=== PATIENT | female | born 1960 | race Caucasian/White ===

== ENCOUNTER → 2018-03-27 14:12 | Outpatient (CLI) | payer OTHER, SELFPAY ==
[2018-03-27 16:00] LABS: Cancer Antigen 125 < 6 U/mL (0-35)
== END ==
PROVIDERS: Family Provider Internal Medicine Hematology & Oncology; PCP Internal Medicine
DX: C56.9 Malignant neoplasm of unspecified ovary (principal)
CPT/HCPCS: 36415; 86304

== ENCOUNTER → 2018-06-26 09:24 | Outpatient (CLI) | payer OTHER, SELFPAY ==
[2018-06-26 11:49] LABS: Cancer Antigen 125 < 6 U/mL (0-35)
== END ==
PROVIDERS: Family Provider Internal Medicine Hematology & Oncology; PCP Internal Medicine; Visit Provider Internal Medicine Hematology & Oncology
DX: Z85.43 Personal history of malignant neoplasm of ovary (principal)
CPT/HCPCS: 36415; 86304

== ENCOUNTER → 2018-09-27 14:32 | Outpatient (CLI) | payer OTHER, SELFPAY ==
[2018-09-27 15:54] LABS: Alanine Aminotransferase 30 IU/L (9-52); Albumin 4.5 g/dL (3.5-5.0); Albumin Globulin Ratio 1.7 (1.0-2.8); Alkaline Phosphatase 54 U/L (38-126); Aspartate Aminotransferase 28 IU/L (14-36); BUN Creatinine Ratio 22.5 (6-22); Bilirubin Total 0.5 mg/dL (0.2-1.3); Blood Urea Nitrogen 18 mg/dL (7-17); Calcium 9.4 mg/dL (8.4-10.2); Carbon Dioxide 28 mmol/L (22-32); Chloride 103 mmol/L (98-107); Estimated Glomerular Filt Rate > 60.0 mL/min (>60); Globulin 2.7 g/dL (1.7-4.1); Glucose 86 mg/dL (70-100); HEMOLYSIS < 15 (0-50); Potassium 4.2 mmol/L (3.4-5.1); Sodium 141 mmol/L (137-145); Total Protein 7.2 g/dL (6.3-8.2)
[2018-09-27 16:21] LABS: Cancer Antigen 125 < 6 U/mL (0-35); Thyroid Stimulating Hormone 2.21 uIU/mL (0.47-4.68)
== END ==
PROVIDERS: Family Provider Internal Medicine Hematology & Oncology
DX: Z85.43 Personal history of malignant neoplasm of ovary (principal); Z13.228 Encounter for screening for other metabolic disorders; E03.9 Hypothyroidism, unspecified
CPT/HCPCS: 36415; 80053; 84443; 86304

== ENCOUNTER → 2019-01-30 18:17 | Outpatient (ROUT) | payer OTHER, SELFPAY ==
[2019-01-30 18:34] LABS: Cholesterol 179 mg/dL (140-199); HDL Cholesterol 53 mg/dL (40-60); LDL Cholesterol Calculated 101 mg/dL (<100); Triglycerides 125 mg/dL (35-150)
== END ==
PROVIDERS: Family Provider Internal Medicine Hematology & Oncology; Visit Provider Physician Assistant
DX: E78.2 Mixed hyperlipidemia (principal)
CPT/HCPCS: 80061

== ENCOUNTER → 2019-09-18 16:10 | Outpatient (CLI) | payer OTHER, SELFPAY ==
[2019-09-18 18:25] LABS: Cancer Antigen 125 < 5.5 U/mL (0-35)
== END ==
PROVIDERS: Family Provider Internal Medicine Hematology & Oncology; PCP Physician Assistant; Referring Provider Internal Medicine Hematology & Oncology; Visit Provider Internal Medicine Hematology & Oncology
DX: Z85.43 Personal history of malignant neoplasm of ovary (principal)
CPT/HCPCS: 36415; 86304

== ENCOUNTER → 2019-09-30 14:46 | Outpatient (CLI) | payer OTHER, SELFPAY ==
--- NOTE | 2019-09-30 | DI.RAD.S_ITS ---
This blank DEXA report has been sent in error by the PACS system. The correct and complete report will be forthcoming in 1-2 days. Thank you for your patience and understanding. Dictated by: Ana Rodriguez MD, PhD on 09/30/2019 at 17:38 Approved by: Ana Rodriguez MD, PhD on 09/30/2019 at 17:38
== END ==
PROVIDERS: Family Provider Internal Medicine Hematology & Oncology; PCP Physician Assistant; Referring Provider Internal Medicine Hematology & Oncology; Visit Provider Internal Medicine Hematology & Oncology
DX: Z13.820 Encounter for screening for osteoporosis (principal); M85.88 Other specified disorders of bone density and structure, other site; Z78.0 Asymptomatic menopausal state; E07.9 Disorder of thyroid, unspecified; Z85.43 Personal history of malignant neoplasm of ovary; Z90.722 Acquired absence of ovaries, bilateral
CPT/HCPCS: 77080

== ENCOUNTER → 2019-10-07 13:39 | Outpatient (CLI) | payer OTHER, SELFPAY ==
[2019-10-09 00:38] LABS: COVID19 Sendout Not Detected (Not Detect)
== END ==
PROVIDERS: Family Provider Internal Medicine Hematology & Oncology; PCP Physician Assistant; Visit Provider Physician Assistant
DX: Z01.812 Encounter for preprocedural laboratory examination (principal)
CPT/HCPCS: 87635

== ENCOUNTER 2020-05-12 11:15 | Outpatient (RCR) | payer OTHER, SELFPAY ==
--- NOTE | 2020-03-08 14:18 | PT.OIE ---
Current Diagnoses Urge incontinence (03/08/20) Rectocele (03/08/20) Past Medical History (Last Updated 02/17/20 @ 17:02 by Shantel Gomez MD) Ovarian cancer Past Surgical History (Last Updated 02/17/20 @ 17:02 by Shantel Gomez MD) History of hysterectomy for cancer Hx of breast implants, bilateral Visit Care Team Role Provider Type Ramona Jurado PA-C Primary Care Provider Advanced Brim Stitcher Specialty: Internal Medicine Address: [address] [place] [address], [id number] Email: [email or web address] Shantel Gomez MD Attending Provider Physician Referring Provider Specialty: HOLLOW WARE MAKER Address: [address] [place] [address], [id number] Email: Physical Therapy Initial Evaluation PT-OP-A Visit Information Start: 03/06/20 09:21 Freq: Status: Active Protocol: Document 03/08/20 11:00 AMB (Rec: 03/08/20 14:18 AMB [id number]) Out-Patient Physical Therapy Visit Information Visit Information Visit Type Initial Evaluation Visit Start Time 11:00 Visit Stop Time 11:55 Total Visit Minutes 55 Visit Number 1 PT-OP-B Current Condition Start: 03/06/20 09:21 Freq: Status: Active Protocol: Document 03/08/20 11:00 AMB (Rec: 03/08/20 11:27 AMB [id number]) Current Condition History of Current Condition Onset Date 2015 Current Complaints prolapse History of Current Condition Pt is here for prolapse, but also has a history of urgency and urge incontinence. Pt had to change pants 3x last week due to large leaks, despite wearing pads. Walking increases feeling of pressure. Then getting close to the toilet triggers a leak. Chronic constipation, 2 vaginal births with tearing. Urinary leakage after childbirth- got help and it went away. Mild fecal incontinence- pt notes it is very uncommon but has happened . Ovarian CA with oophorectomy complete hysterectomy in 2013, think sx started sometime after that. Treatment Goals Patient/Caregiver Goals Reduce prolapse Prior Functional Status Baseline Function- ADL's Modified Independent Baseline Function- Mobility Modified Independent Current Functional Impairments (Reported) Functional Limitations- ADL's leaking with urge, some stress incontinence sx Personal Factors Other Personal Factors That May Effect Osteoporosis, low back pain Therapy/Recovery PT-OP-C Subjective Start: 03/06/20 09:21 Freq: Status: Active Protocol: Document 03/08/20 11:00 AMB (Rec: 03/08/20 14:18 AMB [id number]) Patient Questionnaires Pelvic Pain and Urgency/Frequency Patient Symptom Scale Pelvic Pain Score 14 PT-OP-I Pelvic Floor Start: 03/06/20 09:21 Freq: Status: Active Protocol: Document 03/08/20 11:00 AMB (Rec: 03/08/20 14:18 AMB [id number]) Pelvic Floor Assessment Urine Pelvic Floor Surgery Yes: hysterectomy, oophorectomy 2013 for ovarian cancer Urinary Symptoms Urge Sensation,Prolapse, Falling Out Feeling/Heavy Leakage Size Large Leakage Cause Cough,Sneeze,Urge Leaks Per Day 3x/week Voiding Frequency every 2 hours Nocturia 1 Urine Pad Type Maxi Pad Bowel Bowel Surgery No Bowel Symptoms Constipation Other Bowel Symptoms constipation was worse before but now has made diet changes that help Pelvic Clock Pelvic Clock 12-3 Atrophy Pelvic Clock 3-6 Atrophy Pelvic Clock 6-9 Atrophy Pelvic Clock 9-12 Atrophy Prolapse Cystocele Grade 2 Rectocele Grade 3 Perineal Descent Resting Present Bearing Present Contraction Ability Voluntary Relaxation Moderate Muscle Endurance (Seconds) 1 Number of Quick Contractions In 10 4 Seconds Comments Pelvic Floor Comments Pt able to contract but not hold that contraction for any length of time PT-OP-Q Treatments Start: 03/06/20 09:21 Freq: Status: Active Protocol: Document 03/08/20 11:00 AMB (Rec: 03/08/20 14:18 AMB [id number]) Therapeutic Exercises Other Exercises 1 Comments began instruction in long holds, quick flicks and urge supression PT-OP-T Assessment and Plan Start: 03/06/20 09:21 Freq: Status: Active Protocol: Document 03/08/20 11:00 AMB (Rec: 03/08/20 14:18 AMB [id number]) Physical Therapy Assessment Rehab Potential Rehabilitation Potential Good Evaluation Complexity Number of Personal Factors/Comorbidities 1-2 Number of Body Systems Impaired 1-2 Clinical Presentation at Evaluation Stable Impairments Impairments Functional Activities,Strength Goals Two Impairment prolapse Short Term Goal (STG) Shantel will be independent with a HEP to improve her pelvic floor strength. STG Duration 4 weeks One Impairment continence Short Term Goal (STG) Shantel will report that she can avoid large leaks of urine. STG Duration 4 weeks Keg Varnisher Goal (LTG) Shantel will be able to go for a walk and then come home and look at a toilet without urgency. LTG Duration 8 weeks Assessment Summary Assessment Shantel attends physical therapy with significant rectocele. She also reports urge urinary incontinence and less commonly fecal incontinence and chronic constipation. She was able to engage her pelvic floor, but her endurance was quite poor and she has a tendency to hold her breath. She will benefit from PT to improve her pelvic floor strength and teach her urge suppression to improve her continence as well. Physical Therapy Plan Frequency and Duration Frequency of Treatment 1x/Week Duration of Treatment 8 weeks Plan of Care Start Date 03/08/20 Plan of Care End Date 05/03/20 Therapeutic Interventions Therapeutic Interventions Home Exercise Program,Manual Therapy,Neuromuscular Re- education,Self-Care/Home Management,Therapeutic Activities,Therapeutic Exercises Modalities Biofeedback,Electric Stimulation Next Visit Focus/Plan Next Note Type Treatment Note Next Visit Plan review urge suppression and quick flicks and long holds, can start sEMG
--- NOTE | 2020-03-08 14:19 | PT.OPPOC ---
Physical, Occupational & Speech Therapy At [facility] Current Diagnoses Urge incontinence (03/08/20) Rectocele (03/08/20) Visit Care Team Role Provider Type Ramona Jurado PA-C Primary Care Provider Advanced Experimental Preflight Mechanic Specialty: Internal Medicine Address: [address] [place] [address], [id number] Email: [email or web address] Shantel Gomez MD Attending Provider Physician Referring Provider Specialty: METAL SHAPING MACHINE OPERATOR Address: [address] [place] [address], [id number] Email: Plan Of Care PT-OP-T Assessment and Plan Start: 03/06/20 09:21 Freq: Status: Active Protocol: Document 03/08/20 11:00 AMB (Rec: 03/08/20 14:18 AMB [id number]) Physical Therapy Assessment Rehab Potential Rehabilitation Potential Good Evaluation Complexity Number of Personal Factors/Comorbidities 1-2 Number of Body Systems Impaired 1-2 Clinical Presentation at Evaluation Stable Impairments Impairments Functional Activities,Strength Goals Two Impairment prolapse Short Term Goal (STG) Shantel will be independent with a HEP to improve her pelvic floor strength. STG Duration 4 weeks One Impairment continence Short Term Goal (STG) Shantel will report that she can avoid large leaks of urine. STG Duration 4 weeks Prison Goal (LTG) Shantel will be able to go for a walk and then come home and look at a toilet without urgency. LTG Duration 8 weeks Assessment Summary Assessment Shantel attends physical therapy with significant rectocele. She also reports urge urinary incontinence and less commonly fecal incontinence and chronic constipation. She was able to engage her pelvic floor, but her endurance was quite poor and she has a tendency to hold her breath. She will benefit from PT to improve her pelvic floor strength and teach her urge suppression to improve her continence as well. Physical Therapy Plan Frequency and Duration Frequency of Treatment 1x/Week Duration of Treatment 8 weeks Plan of Care Start Date 03/08/20 Plan of Care End Date 05/03/20 Therapeutic Interventions Therapeutic Interventions Home Exercise Program,Manual Therapy,Neuromuscular Re- education,Self-Care/Home Management,Therapeutic Activities,Therapeutic Exercises Modalities Biofeedback,Electric Stimulation Next Visit Focus/Plan Next Note Type Treatment Note Next Visit Plan review urge suppression and quick flicks and long holds, can start sEMG Plan of Care Dates Plan of Care Start Date 03/08/20 Plan of Care End Date 05/03/20 Electronically Signed by: Jolly Mike, PT 03/08/20 [id number] Please Sign and Return: I have reviewed this Plan of Care and certify that the skilled therapy services above are required to meet the patient?s needs. Physician Signature Date Printed Name and Credentials Clinical Instructor Signature Printed Name and Credentials
--- NOTE | 2020-03-31 14:43 | PT.OTN ---
Current Diagnoses Urge incontinence (03/31/20) Rectocele (03/31/20) Physical Therapy Treatment Note PT-OP-A Visit Information Start: 03/06/20 09:21 Freq: Status: Active Protocol: Document 03/31/20 13:34 AMB (Rec: 03/31/20 14:41 AMB [id number]) Out-Patient Physical Therapy Visit Information Visit Information Visit Type Treatment Note Visit Start Time 13:30 Visit Stop Time 14:15 Total Visit Minutes 45 Visit Number 2 PT-OP-B Current Condition Start: 03/06/20 09:21 Freq: Status: Active Protocol: Document 03/08/20 11:00 AMB (Rec: 03/08/20 11:27 AMB [id number]) Current Condition History of Current Condition Onset Date 2015 Current Complaints prolapse History of Current Condition Pt is here for prolapse, but also has a history of urgency and urge incontinence. Pt had to change pants 3x last week due to large leaks, despite wearing pads. Walking increases feeling of pressure. Then getting close to the toilet triggers a leak. Chronic constipation, 2 vaginal births with tearing. Urinary leakage after childbirth- got help and it went away. Mild fecal incontinence- pt notes it is very uncommon but has happened . Ovarian CA with oophorectomy complete hysterectomy in 2013, think sx started sometime after that. Treatment Goals Patient/Caregiver Goals Reduce prolapse Prior Functional Status Baseline Function- ADL's Modified Independent Baseline Function- Mobility Modified Independent Current Functional Impairments (Reported) Functional Limitations- ADL's leaking with urge, some stress incontinence sx Personal Factors Other Personal Factors That May Effect Osteoporosis, low back pain Therapy/Recovery PT-OP-C Subjective Start: 03/06/20 09:21 Freq: Status: Active Protocol: Document 03/31/20 13:34 AMB (Rec: 03/31/20 14:41 AMB [id number]) OP-PT Subjective Patient Comments Patient Comments There have been 3 leaks since the last time she was seen in PT, but not large ones, so that is a significant improvement. PT-OP-I Pelvic Floor Start: 03/06/20 09:21 Freq: Status: Active Protocol: Document 03/08/20 11:00 AMB (Rec: 03/08/20 14:18 AMB [id number]) Pelvic Floor Assessment Urine Pelvic Floor Surgery Yes: hysterectomy, oophorectomy 2013 for ovarian cancer Urinary Symptoms Urge Sensation,Prolapse, Falling Out Feeling/Heavy Leakage Size Large Leakage Cause Cough,Sneeze,Urge Leaks Per Day 3x/week Voiding Frequency every 2 hours Nocturia 1 Urine Pad Type Maxi Pad Bowel Bowel Surgery No Bowel Symptoms Constipation Other Bowel Symptoms constipation was worse before but now has made diet changes that help Pelvic Clock Pelvic Clock 12-3 Atrophy Pelvic Clock 3-6 Atrophy Pelvic Clock 6-9 Atrophy Pelvic Clock 9-12 Atrophy Prolapse Cystocele Grade 2 Rectocele Grade 3 Perineal Descent Resting Present Bearing Present Contraction Ability Voluntary Relaxation Moderate Muscle Endurance (Seconds) 1 Number of Quick Contractions In 10 4 Seconds Comments Pelvic Floor Comments Pt able to contract but not hold that contraction for any length of time PT-OP-Q Treatments Start: 03/06/20 09:21 Freq: Status: Active Protocol: Document 03/31/20 13:34 AMB (Rec: 03/31/20 14:41 AMB [id number]) Therapeutic Exercises Supine Exercises 3 Supine Exercise Name long holds with sEMG 2 Supine Exercise Name long holds Comments with breath, on bolster, gentle contract and relax 1 Supine Exercise Name quick flicks Comments legs up on bolster PT-OP-T Assessment and Plan Start: 03/06/20 09:21 Freq: Status: Active Protocol: Document 03/31/20 13:34 AMB (Rec: 03/31/20 14:41 AMB [id number]) Physical Therapy Assessment Assessment Summary Assessment Shantel is showing improvement in her urgency but is still challenged by long holds. sEMG did seem to help her hold the contraction, but still struggles with breath. Physical Therapy Plan Next Visit Focus/Plan Next Note Type Treatment Note Next Visit Plan sEMG and biofeedback
--- NOTE | 2020-04-05 15:12 | PT.OTN ---
Current Diagnoses Urge incontinence (04/05/20) Rectocele (04/05/20) Physical Therapy Treatment Note PT-OP-A Visit Information Start: 03/06/20 09:21 Freq: Status: Active Protocol: Document 04/05/20 12:45 AMB (Rec: 04/05/20 13:32 AMB [id number]) Out-Patient Physical Therapy Visit Information Visit Information Visit Type Treatment Note Visit Start Time 12:45 Visit Stop Time 13:30 Total Visit Minutes 45 Visit Number 3 PT-OP-B Current Condition Start: 03/06/20 09:21 Freq: Status: Active Protocol: Document 03/08/20 11:00 AMB (Rec: 03/08/20 11:27 AMB [id number]) Current Condition History of Current Condition Onset Date 2015 Current Complaints prolapse History of Current Condition Pt is here for prolapse, but also has a history of urgency and urge incontinence. Pt had to change pants 3x last week due to large leaks, despite wearing pads. Walking increases feeling of pressure. Then getting close to the toilet triggers a leak. Chronic constipation, 2 vaginal births with tearing. Urinary leakage after childbirth- got help and it went away. Mild fecal incontinence- pt notes it is very uncommon but has happened . Ovarian CA with oophorectomy complete hysterectomy in 2013, think sx started sometime after that. Treatment Goals Patient/Caregiver Goals Reduce prolapse Prior Functional Status Baseline Function- ADL's Modified Independent Baseline Function- Mobility Modified Independent Current Functional Impairments (Reported) Functional Limitations- ADL's leaking with urge, some stress incontinence sx Personal Factors Other Personal Factors That May Effect Osteoporosis, low back pain Therapy/Recovery PT-OP-C Subjective Start: 03/06/20 09:21 Freq: Status: Active Protocol: Document 03/31/20 13:34 AMB (Rec: 03/31/20 14:41 AMB [id number]) OP-PT Subjective Patient Comments Patient Comments There have been 3 leaks since the last time she was seen in PT, but not large ones, so that is a significant improvement. PT-OP-I Pelvic Floor Start: 03/06/20 09:21 Freq: Status: Active Protocol: Document 03/08/20 11:00 AMB (Rec: 03/08/20 14:18 AMB [id number]) Pelvic Floor Assessment Urine Pelvic Floor Surgery Yes: hysterectomy, oophorectomy 2013 for ovarian cancer Urinary Symptoms Urge Sensation,Prolapse, Falling Out Feeling/Heavy Leakage Size Large Leakage Cause Cough,Sneeze,Urge Leaks Per Day 3x/week Voiding Frequency every 2 hours Nocturia 1 Urine Pad Type Maxi Pad Bowel Bowel Surgery No Bowel Symptoms Constipation Other Bowel Symptoms constipation was worse before but now has made diet changes that help Pelvic Clock Pelvic Clock 12-3 Atrophy Pelvic Clock 3-6 Atrophy Pelvic Clock 6-9 Atrophy Pelvic Clock 9-12 Atrophy Prolapse Cystocele Grade 2 Rectocele Grade 3 Perineal Descent Resting Present Bearing Present Contraction Ability Voluntary Relaxation Moderate Muscle Endurance (Seconds) 1 Number of Quick Contractions In 10 4 Seconds Comments Pelvic Floor Comments Pt able to contract but not hold that contraction for any length of time PT-OP-Q Treatments Start: 03/06/20 09:21 Freq: Status: Active Protocol: Document 04/05/20 12:45 AMB (Rec: 04/05/20 15:12 AMB [email or web address]) Therapeutic Exercises Supine Exercises 4 Supine Exercise Name roll in roll out Reps/Minutes #3 t band 3 Supine Exercise Name long holds and quick flicks with sEMG 2 Supine Exercise Name long holds Comments with breath, on bolster, gentle contract and relax 1 Supine Exercise Name quick flicks Comments legs up on bolster Sitting Exercises 1 Sitting Exercise Name roll in roll out Reps/Minutes #3 t band PT-OP-T Assessment and Plan Start: 03/06/20 09:21 Freq: Status: Active Protocol: Document 04/05/20 12:45 AMB (Rec: 04/05/20 13:32 AMB [id number]) Physical Therapy Assessment Assessment Summary Assessment Quick flicks highest was 20, avg 7.6, baseline 2. Avg 6.8 over long hold with max 20, but unable to maintain that. Physical Therapy Plan Next Visit Focus/Plan Next Note Type Treatment Note Next Visit Plan sEMG and biofeedback
--- NOTE | 2020-04-20 15:53 | PT.OTN ---
Current Diagnoses Urge incontinence (04/20/20) Rectocele (04/20/20) Physical Therapy Treatment Note PT-OP-A Visit Information Start: 03/06/20 09:21 Freq: Status: Active Protocol: Document 04/20/20 10:30 AMB (Rec: 04/20/20 15:52 AMB [id number]) Out-Patient Physical Therapy Visit Information Visit Information Visit Type Treatment Note Visit Start Time 10:30 Visit Stop Time 11:15 Total Visit Minutes 45 Visit Number 4 PT-OP-B Current Condition Start: 03/06/20 09:21 Freq: Status: Active Protocol: Document 03/08/20 11:00 AMB (Rec: 03/08/20 11:27 AMB [id number]) Current Condition History of Current Condition Onset Date 2015 Current Complaints prolapse History of Current Condition Pt is here for prolapse, but also has a history of urgency and urge incontinence. Pt had to change pants 3x last week due to large leaks, despite wearing pads. Walking increases feeling of pressure. Then getting close to the toilet triggers a leak. Chronic constipation, 2 vaginal births with tearing. Urinary leakage after childbirth- got help and it went away. Mild fecal incontinence- pt notes it is very uncommon but has happened . Ovarian CA with oophorectomy complete hysterectomy in 2013, think sx started sometime after that. Treatment Goals Patient/Caregiver Goals Reduce prolapse Prior Functional Status Baseline Function- ADL's Modified Independent Baseline Function- Mobility Modified Independent Current Functional Impairments (Reported) Functional Limitations- ADL's leaking with urge, some stress incontinence sx Personal Factors Other Personal Factors That May Effect Osteoporosis, low back pain Therapy/Recovery PT-OP-C Subjective Start: 03/06/20 09:21 Freq: Status: Active Protocol: Document 04/20/20 10:30 AMB (Rec: 04/20/20 15:52 AMB [id number]) OP-PT Subjective Patient Comments Patient Comments Pt states she has had a hard time motivating herself to do her exercises over the past few weeks. PT-OP-I Pelvic Floor Start: 03/06/20 09:21 Freq: Status: Active Protocol: Document 03/08/20 11:00 AMB (Rec: 03/08/20 14:18 AMB [id number]) Pelvic Floor Assessment Urine Pelvic Floor Surgery Yes: hysterectomy, oophorectomy 2013 for ovarian cancer Urinary Symptoms Urge Sensation,Prolapse, Falling Out Feeling/Heavy Leakage Size Large Leakage Cause Cough,Sneeze,Urge Leaks Per Day 3x/week Voiding Frequency every 2 hours Nocturia 1 Urine Pad Type Maxi Pad Bowel Bowel Surgery No Bowel Symptoms Constipation Other Bowel Symptoms constipation was worse before but now has made diet changes that help Pelvic Clock Pelvic Clock 12-3 Atrophy Pelvic Clock 3-6 Atrophy Pelvic Clock 6-9 Atrophy Pelvic Clock 9-12 Atrophy Prolapse Cystocele Grade 2 Rectocele Grade 3 Perineal Descent Resting Present Bearing Present Contraction Ability Voluntary Relaxation Moderate Muscle Endurance (Seconds) 1 Number of Quick Contractions In 10 4 Seconds Comments Pelvic Floor Comments Pt able to contract but not hold that contraction for any length of time PT-OP-Q Treatments Start: 03/06/20 09:21 Freq: Status: Active Protocol: Document 04/20/20 10:35 AMB (Rec: 04/20/20 11:14 AMB [id number]) Therapeutic Exercises Supine Exercises 4 Supine Exercise Name roll in roll out Reps/Minutes #3 t band 3 Supine Exercise Name long holds and quick flicks with sEMG Comments with NMES 2 Supine Exercise Name long holds Comments with breath, on bolster, gentle contract and relax 1 Supine Exercise Name quick flicks Comments legs up on bolster PT-OP-T Assessment and Plan Start: 03/06/20 09:21 Freq: Status: Active Protocol: Document 04/20/20 10:30 AMB (Rec: 04/20/20 15:52 AMB [email or web address]) Physical Therapy Assessment Assessment Summary Assessment Tried to encourage pt with NMES today, that she has the confidence to know what muscles she should be using. Education also provided on pessary, surgery, PT. Physical Therapy Plan Next Visit Focus/Plan Next Note Type Treatment Note Next Visit Plan sEMG and biofeedback
--- NOTE | 2020-05-12 12:00 | PT.OTN ---
Current Diagnoses Urge incontinence (05/12/20) Rectocele (05/12/20) Physical Therapy Treatment Note PT-OP-A Visit Information Start: 03/06/20 09:21 Freq: Status: Active Protocol: Document 05/12/20 11:15 AMB (Rec: 05/12/20 16:19 AMB [id number]) Out-Patient Physical Therapy Visit Information Visit Information Visit Type Treatment Note Visit Start Time 11:15 Visit Stop Time 12:00 Total Visit Minutes 45 Visit Number 5 PT-OP-B Current Condition Start: 03/06/20 09:21 Freq: Status: Active Protocol: Document 03/08/20 11:00 AMB (Rec: 03/08/20 11:27 AMB [id number]) Current Condition History of Current Condition Onset Date 2015 Current Complaints prolapse History of Current Condition Pt is here for prolapse, but also has a history of urgency and urge incontinence. Pt had to change pants 3x last week due to large leaks, despite wearing pads. Walking increases feeling of pressure. Then getting close to the toilet triggers a leak. Chronic constipation, 2 vaginal births with tearing. Urinary leakage after childbirth- got help and it went away. Mild fecal incontinence- pt notes it is very uncommon but has happened . Ovarian CA with oophorectomy complete hysterectomy in 2013, think sx started sometime after that. Treatment Goals Patient/Caregiver Goals Reduce prolapse Prior Functional Status Baseline Function- ADL's Modified Independent Baseline Function- Mobility Modified Independent Current Functional Impairments (Reported) Functional Limitations- ADL's leaking with urge, some stress incontinence sx Personal Factors Other Personal Factors That May Effect Osteoporosis, low back pain Therapy/Recovery PT-OP-C Subjective Start: 03/06/20 09:21 Freq: Status: Active Protocol: Document 05/12/20 11:15 AMB (Rec: 05/21/20 07:55 AMB [email or web address]) OP-PT Subjective Patient Comments Patient Comments Pt is feeling continued heaviness, but has been doing exercises PT-OP-I Pelvic Floor Start: 03/06/20 09:21 Freq: Status: Active Protocol: Document 03/08/20 11:00 AMB (Rec: 03/08/20 14:18 AMB [id number]) Pelvic Floor Assessment Urine Pelvic Floor Surgery Yes: hysterectomy, oophorectomy 2013 for ovarian cancer Urinary Symptoms Urge Sensation,Prolapse, Falling Out Feeling/Heavy Leakage Size Large Leakage Cause Cough,Sneeze,Urge Leaks Per Day 3x/week Voiding Frequency every 2 hours Nocturia 1 Urine Pad Type Maxi Pad Bowel Bowel Surgery No Bowel Symptoms Constipation Other Bowel Symptoms constipation was worse before but now has made diet changes that help Pelvic Clock Pelvic Clock 12-3 Atrophy Pelvic Clock 3-6 Atrophy Pelvic Clock 6-9 Atrophy Pelvic Clock 9-12 Atrophy Prolapse Cystocele Grade 2 Rectocele Grade 3 Perineal Descent Resting Present Bearing Present Contraction Ability Voluntary Relaxation Moderate Muscle Endurance (Seconds) 1 Number of Quick Contractions In 10 4 Seconds Comments Pelvic Floor Comments Pt able to contract but not hold that contraction for any length of time PT-OP-Q Treatments Start: 03/06/20 09:21 Freq: Status: Active Protocol: Document 05/12/20 11:15 AMB (Rec: 05/21/20 07:54 AMB [email or web address]) Therapeutic Exercises Supine Exercises 4 Supine Exercise Name roll in roll out Reps/Minutes #3 t band 2 Supine Exercise Name long holds Comments with breath, on bolster, gentle contract and relax 1 Supine Exercise Name quick flicks Comments legs up on bolster Sitting Exercises 1 Sitting Exercise Name roll in roll out Reps/Minutes #3 t band PT-OP-T Assessment and Plan Start: 03/06/20 09:21 Freq: Status: Active Protocol: Document 05/12/20 11:15 AMB (Rec: 05/19/20 08:15 AMB [email or web address]) Physical Therapy Assessment Goals Two Impairment prolapse Short Term Goal (STG) Shantel will be independent with a HEP to improve her pelvic floor strength. STG Duration 4 weeks One Impairment continence Short Term Goal (STG) Shantel will report that she can avoid large leaks of urine. STG Duration MET Group Home Goal (LTG) Shantel will be able to go for a walk and then come home and look at a toilet without urgency. LTG Duration 8 weeks Assessment Summary Assessment Shantel has attended 5 visits of physical therapy. Her urgency has improved. She was surprised to learn that she has rectocele. Significant education provided today on the different types of prolapse, and treatment options. She is wondering if the rectocele is contributing to her uncommon fecal incontinence. She is considering going back to surgeon to discuss this, but is hopeful to continue to improve her pelvic floor strength in the interim. She would continue to benefit from physical therapy to improve her pelvic floor strength. Physical Therapy Plan Frequency and Duration Frequency of Treatment 1x/Week Duration of Treatment 8 weeks Plan of Care Start Date 05/12/20 Plan of Care End Date 06/30/20 Therapeutic Interventions Therapeutic Interventions Home Exercise Program,Manual Therapy,Neuromuscular Re- education,Self-Care/Home Management,Therapeutic Activities,Therapeutic Exercises Modalities Biofeedback,Electric Stimulation
--- NOTE | 2020-05-12 12:00 | PT.OPPOC ---
Physical, Occupational & Speech Therapy At [facility] Current Diagnoses Urge incontinence (05/12/20) Rectocele (05/12/20) Visit Care Team Role Provider Type Ramona Jurado PA-C Primary Care Provider Non-Staff Specialty: Internal Medicine Address: [address] [place] [address], [id number] Email: [email or web address] Shantel Gomez MD Attending Provider Physician Referring Provider Specialty: TERMITE TREATER HELPER Address: [address] [place] [address], [id number] Email: Plan Of Care PT-OP-T Assessment and Plan Start: 03/06/20 09:21 Freq: Status: Active Protocol: Document 05/12/20 11:15 AMB (Rec: 05/19/20 08:15 AMB [email or web address]) Physical Therapy Assessment Goals Two Impairment prolapse Short Term Goal (STG) Shantel will be independent with a HEP to improve her pelvic floor strength. STG Duration 4 weeks One Impairment continence Short Term Goal (STG) Shantel will report that she can avoid large leaks of urine. STG Duration MET Senior Care Goal (LTG) Shantel will be able to go for a walk and then come home and look at a toilet without urgency. LTG Duration 8 weeks Assessment Summary Assessment Shantel has attended 5 visits of physical therapy. Her urgency has improved. She was surprised to learn that she has rectocele. Significant education provided today on the different types of prolapse, and treatment options. She is wondering if the rectocele is contributing to her uncommon fecal incontinence. She is considering going back to surgeon to discuss this, but is hopeful to continue to improve her pelvic floor strength in the interim. She would continue to benefit from physical therapy to improve her pelvic floor strength. Physical Therapy Plan Frequency and Duration Frequency of Treatment 1x/Week Duration of Treatment 8 weeks Plan of Care Start Date 05/12/20 Plan of Care End Date 06/30/20 Therapeutic Interventions Therapeutic Interventions Home Exercise Program,Manual Therapy,Neuromuscular Re- education,Self-Care/Home Management,Therapeutic Activities,Therapeutic Exercises Modalities Biofeedback,Electric Stimulation Plan of Care Dates Plan of Care Start Date 05/12/20 Plan of Care End Date 06/30/20 Electronically Signed by: Jolly Mike, PT 05/21/20 0757 Please Sign and Return: I have reviewed this Plan of Care and certify that the skilled therapy services above are required to meet the patient?s needs. Physician Signature Date Printed Name and Credentials Clinical Instructor Signature Printed Name and Credentials
--- NOTE | 2020-07-11 09:14 | PT.OPDS ---
Current Diagnoses Urge incontinence (05/12/20) Rectocele (05/12/20) Visit Care Team Role Provider Type Ramona Jurado PA-C Primary Care Provider Non-Staff Specialty: Internal Medicine Address: [address] [place] [address], [phone] Email: [email or web address] Shantel Gomez MD Attending Provider Physician Referring Provider Specialty: SERVICENOW ADMINISTRATOR Address: [address] [place] [address], [address] Email: Visit Number Visit Number 5 Discharge Summary PT-OP-B Current Condition Start: 03/06/20 09:21 Freq: Status: Active Protocol: Document 03/08/20 11:00 AMB (Rec: 03/08/20 11:27 AMB [id number]) Current Condition History of Current Condition Onset Date 2015 Current Complaints prolapse History of Current Condition Pt is here for prolapse, but also has a history of urgency and urge incontinence. Pt had to change pants 3x last week due to large leaks, despite wearing pads. Walking increases feeling of pressure. Then getting close to the toilet triggers a leak. Chronic constipation, 2 vaginal births with tearing. Urinary leakage after childbirth- got help and it went away. Mild fecal incontinence- pt notes it is very uncommon but has happened . Ovarian CA with oophorectomy complete hysterectomy in 2013, think sx started sometime after that. Treatment Goals Patient/Caregiver Goals Reduce prolapse Prior Functional Status Baseline Function- ADL's Modified Independent Baseline Function- Mobility Modified Independent Current Functional Impairments (Reported) Functional Limitations- ADL's leaking with urge, some stress incontinence sx Personal Factors Other Personal Factors That May Effect Osteoporosis, low back pain Therapy/Recovery PT-OP-C Subjective Start: 03/06/20 09:21 Freq: Status: Active Protocol: Document 05/12/20 11:15 AMB (Rec: 05/21/20 07:55 AMB [email or web address]) OP-PT Subjective Patient Comments Patient Comments Pt is feeling continued heaviness, but has been doing exercises PT-OP-I Pelvic Floor Start: 03/06/20 09:21 Freq: Status: Active Protocol: Document 12/21/20 11:00 AMB (Rec: 03/08/20 14:18 AMB [id number]) Pelvic Floor Assessment Urine Pelvic Floor Surgery Yes: hysterectomy, oophorectomy 2013 for ovarian cancer Urinary Symptoms Urge Sensation,Prolapse, Falling Out Feeling/Heavy Leakage Size Large Leakage Cause Cough,Sneeze,Urge Leaks Per Day 3x/week Voiding Frequency every 2 hours Nocturia 1 Urine Pad Type Maxi Pad Bowel Bowel Surgery No Bowel Symptoms Constipation Other Bowel Symptoms constipation was worse before but now has made diet changes that help Pelvic Clock Pelvic Clock 12-3 Atrophy Pelvic Clock 3-6 Atrophy Pelvic Clock 6-9 Atrophy Pelvic Clock 9-12 Atrophy Prolapse Cystocele Grade 2 Rectocele Grade 3 Perineal Descent Resting Present Bearing Present Contraction Ability Voluntary Relaxation Moderate Muscle Endurance (Seconds) 1 Number of Quick Contractions In 10 4 Seconds Comments Pelvic Floor Comments Pt able to contract but not hold that contraction for any length of time PT-OP-T Assessment and Plan Start: 03/06/20 09:21 Freq: Status: Active Protocol: Document 07/11/20 09:11 AMB (Rec: 07/11/20 09:13 [facility] [email or web address]) Physical Therapy Assessment Assessment Summary Assessment Shantel was seen for 5 visits of physical therapy and did have good improvement with her urgency, but would need to continue with her exercises for her prolapse. She canceled her last remaining appointments and has not been seen since April, therefore she is discharged at this time. Physical Therapy Plan Discharge Physical Therapy Discharge Reasons No Longer Attending PT
== END 2020-07-13 14:46 | disposition home or self-care (01) ==
LOC: PHYS 11:15
PROVIDERS: PCP Physician Assistant; Referring Provider Obstetrics & Gynecology; Visit Provider Obstetrics & Gynecology
DX: N81.6 Rectocele (principal); N39.41 Urge incontinence
CPT/HCPCS: 97110; 97161

== ENCOUNTER → 2020-08-11 17:52 | Outpatient (CLI) | payer OTHER, SELFPAY ==
[2020-08-11 20:34] LABS: TSH w/ Reflex to FT4 1.92 uIU/mL (0.47-4.68)
[2020-08-11 20:49] LABS: Cholesterol 233 mg/dL (140-199); HDL Cholesterol 80 mg/dL (40-60); LDL Cholesterol Calculated 141 mg/dL (<100); Triglycerides 59 mg/dL (35-150)
[2020-08-11 21:20] LABS: Cancer Antigen 125 < 5.5 U/mL (0-35)
== END ==
PROVIDERS: PCP Family Medicine; Referring Provider Internal Medicine Hematology & Oncology; Visit Provider Internal Medicine Hematology & Oncology
DX: Z85.43 Personal history of malignant neoplasm of ovary (principal); E03.9 Hypothyroidism, unspecified; L90.0 Lichen sclerosus et atrophicus; G47.30 Sleep apnea, unspecified
CPT/HCPCS: 36415; 80061; 84443; 86304

== ENCOUNTER → 2021-01-20 15:02 | Outpatient (CLI) | payer OTHER, SELFPAY ==
[2021-01-20 16:34] LABS: Add Manual Diff / Slide Review NO; Basophils Absolute Auto 0 /uL (0-100); Basophils Percent Auto 0.5 % (0-2); Eosinophils Absolute Auto 100 /uL (0-450); Eosinophils Percent Auto 1.9 % (2-4); Hematocrit 36.5 % (36-46); Hemoglobin 12.3 g/dL (12.0-16.0); Lymphocytes Absolute Auto 1700 /uL (1100-4500); Lymphocytes Percent Auto 27.6 % (25-40); Mean Corpuscular HGB Conc 33.8 % (30-36); Mean Corpuscular Hemoglobin 30.3 PG (26-34); Mean Corpuscular Volume 89.8 fL (80-100); Monocytes Absolute Auto 600 /uL (0-900); Monocytes Percent Auto 10.1 % (3-14); Neutrophils Absolute Auto 3600 /uL (1500-7000); Neutrophils Percent Auto 59.9 % (50-75); Platelet Count 199 X10^3/uL (150-400); Red Blood Cell Count 4.06 X10^6/uL (4.0-5.2); Red Cell Distribution Width 12.6 % (11.6-14.8)
[2021-01-20 16:58] LABS: HEMOLYSIS < 15 (0-50); Iron 70 ug/dL (37-170)
[2021-01-20 16:59] LABS: Alanine Aminotransferase 29 IU/L (<35); Albumin 4.7 g/dL (3.5-5.0); Albumin Globulin Ratio 1.6 (1.0-2.8); Alkaline Phosphatase 56 U/L (38-126); Aspartate Aminotransferase 41 IU/L (14-36); BUN Creatinine Ratio 19.7 (6-22); Bilirubin Total 0.7 mg/dL (0.2-1.3); Blood Urea Nitrogen 13 mg/dL (7-17); Calcium 9.5 mg/dL (8.4-10.2); Carbon Dioxide 29 mmol/L (22-32); Chloride 99 mmol/L (98-107); Estimated Glomerular Filt Rate > 60.0 mL/min (>60); Glucose 85 mg/dL (80-110); HEMOLYSIS < 15 (0-50); Potassium 4.2 mmol/L (3.4-5.1); Sodium 137 mmol/L (137-145); Total Protein 7.7 g/dL (6.3-8.2)
[2021-01-20 17:05] LABS: Vitamin D 25 Hydroxy (D3) 38.2 ng/mL (30.0-100.0)
[2021-01-20 17:11] LABS: Percent Iron Saturation 24 % (15-50); Total Iron Binding Capacity 293 ug/dL (265-497); Transferrin 237 mg/dL (206-381)
[2021-01-20 17:30] LABS: Cancer Antigen 125 < 5.5 U/mL (0-35)
[2021-01-20 17:31] LABS: TSH w/ Reflex to FT4 4.42 uIU/mL (0.47-4.68)
[2021-01-20 17:34] LABS: Ferritin 45 ng/mL (11-264)
[2021-01-20 17:49] LABS: Vitamin B12 Reflex MMA if <400 689 pg/mL (239-931)
== END ==
PROVIDERS: PCP Family Medicine; Referring Provider Internal Medicine Hematology & Oncology; Visit Provider Internal Medicine Hematology & Oncology
DX: M85.89 Other specified disorders of bone density and structure, multiple sites (principal); Z85.43 Personal history of malignant neoplasm of ovary; D64.9 Anemia, unspecified; E03.9 Hypothyroidism, unspecified; Z13.820 Encounter for screening for osteoporosis
CPT/HCPCS: 36415; 80053; 82306; 82607; 82728; 83540; 83550; 84443; 85025; 86304

== ENCOUNTER → 2021-07-13 11:04 | Outpatient (CLI) | payer OTHER, SELFPAY ==
[2021-07-13 13:53] LABS: COVID19 -Nasal RAPID Negative (Negative)
== END ==
PROVIDERS: PCP Family Medicine; Visit Provider Family Medicine Sleep Medicine
DX: Z20.822 Contact with and (suspected) exposure to COVID-19 (principal)
CPT/HCPCS: 87635; C9803

== ENCOUNTER → 2021-07-14 13:50 | Outpatient (CLI) | payer OTHER, SELFPAY ==
--- NOTE | 2021-07-14 | DI.ECHO.S_ITS ---
[facility] +---------+ : : [address] : : : : [id number] : : : : Phone: [phone]---------+ Echocardiogram Report + + :Name: AKBAR LOPEZ Study Date: 07/14/2021 Height: 67 in : :[facility] ReadingLocation: Weight: 161 lb : : Gender: Female BSA: 1.8 m2 : :: 1960 Age: 61 yrs BP: 106/70 mmHg: :Reason For Study: Bradycardia : :Ordering Physician: Brii Watson : :Sarah Performed By: Lisa Bosch : :Referring: BRII FOSTER : + + Interpretation Summary The ejection fraction is estimated to be 60-65%. Diastolic function could not be accurately assessed due to unobtainable data. The right ventricle is normal in size and function. The left atrium is mildly dilated. No significant valvular abnormalities. Unable to estimate PASP. There is a trace pericardial effusion that is circumferential. Procedure: A two-dimensional transthoracic echocardiogram with color flow and Doppler was performed. The study quality was technically adequate. The patient had an echocardiogram, but there is no comparison study available. The patient was in sinus bradycardia with heart rates between 43-52 bpm during the exam. Left Ventricle: The left ventricle is normal in size and wall thickness. The ejection fraction is estimated to be 60-65%. Diastolic function could not be accurately assessed due to unobtainable data. Right Ventricle: The right ventricle is normal in size and function. Atria: The left atrium is mildly dilated. Right atrial size is normal. There is no Doppler evidence for an interatrial shunt. Mitral Valve: The mitral valve is normal in structure and function. There is trace mitral regurgitation. Aortic Valve: The aortic valve is trileaflet. The aortic valve opens well. There is no aortic valve stenosis. There is trace aortic regurgitation. Tricuspid Valve: The tricuspid valve is normal in structure and function. No tricuspid regurgitation. Pulmonary artery pressures cannot be estimated because of the lack of a measurable TR jet velocity. Pulmonic Valve: The pulmonic valve leaflets are thin and pliable; valve motion is normal. There is no pulmonic valvular regurgitation. Great Vessels: The aortic root is normal size. The dimensions of the ascending aorta are normal. The IVC is of normal diameter and collapses greater than 50% with a sniff. This suggests a low right atrial pressure of 3 mm Hg. Pericardium/ Pleura There is a trace pericardial effusion that is circumferential. There is no pleural effusion. MMode/2D Measurements & Calculations LVIDd: 5.3 cm LVOT diam: 2.1 cm LVIDs: 3.4 cm Ao root diam: 3.3 cm FS: 36.4 % asc Aorta Diam: 3.2 cm IVSd: 0.75 cm Ao Arch Diam (Prox Trans): 2.7 cm LVPWd: 0.80 cm LV yang. diameter/BSA (cm/m^2): 2.9 LV sys. diameter/BSA (cm/m^2): 1.8 LA A2 area: 24.7 cm2 RA long axis: 5.4 cm LA A4 area: 21.2 cm2 RA area: 19.2 cm2 LA length (vol): 5.8 cm RA vol: 58.1 ml LA vol: 77.3 ml RA : 31.5 ml/m2 LA vol index: 41.9 ml/m2 IVC diam: 1.5 cm RVD1 (basal): 3.5 cm RVD2 (mid): 3.3 cm TAPSE: 2.0 cm Doppler Measurements & Calculations Ao V2 max: 129.4 cm/sec LVOT Max Gianluca: 87.1 cm/sec Ao V2 mean: 94.0 cm/sec LV V1 max P.1 mmHg Ao max P.7 mmHg LV V1 VTI: 20.9 cm Ao mean P.8 mmHg EMANUEL(I,D): 2.2 cm2 Ao V2 VTI: 34.3 cm EMANUEL(V,D): 2.4 cm2 sev ratio: 0.61 EMANUEL indexed to BSA (cm^2/m^2): 1.2 MV E max gianluca: 79.1 cm/sec PA V2 max: 100.6 cm/sec MV A max gianluca: 47.3 cm/sec PA V2 mean: 75.2 cm/sec MV E/A: 1.7 PA mean P.4 mmHg Med Peak E' Gianluca: 8.4 cm/sec PA pr(Accel): 25.9 mmHg E/E' med: 9.4 Lat Peak E' Gianluca: 8.7 cm/sec E/E' lat: 9.1 E/e' average: 9.3 MV dec time: 0.19 sec SV(LVOT): 74.1 ml Reading Physician:04:03 PM
--- NOTE | 2021-07-14 | DI.NM.S_ITS ---
PROCEDURE: NM EXERCISE TREADMILL NON NUC COMPARISON: None. INDICATIONS: Sinus Bradycardia FINDINGS: The patient exercised from 9 minutes and 1 second reaching 8.9 METs, VAMSHI -31%. 87% of maximum predicted heart rate achieved. Appropriate BP response to exercise (resting BP 120/72mmHg, max BP [id number]). No angina during the study. No ST changes and no ectopy during the study. IMPRESSION: Low risk, normal treadmill ECG only stress test with adequate chronotropic response (87% of max predicted heart rate reached) and no ischemic ECG changes. Good exercise tolerance (VAMSHI -31%). Dictated by: Frankie Escalona MD on 07/14/2021 at 16:31 Approved by: Frankie Escalona MD on 07/14/2021 at 16:34
--- NOTE | 2021-07-14 15:49 | PM.TREADMILL ---
Cardiac Stress Test Report Referral & Results Date Patient Seen: 07/14/21 Time Patient Seen: 15:49 Requesting provider: Sacha Smith Indication: Bradycardia Rest ECG: Sinus bradycardia Procedure Note: Standard [facility] protocol, 9:00; 8.9 METS Very good exercise capacity, VAMSHI -31% Normal hemodynamic response to exercise; normal heart rate response to activity No chest pain or anginal symptoms No significant ST changes at peak exercise No ectopy Impression: Normal exercise stress test with appropriate chronotropic response to exercise Please note: Actual ECG tracings can be found in the PACS system.
== END ==
PROVIDERS: PCP Family Medicine; Referring Provider Internal Medicine Cardiovascular Disease; Visit Provider Internal Medicine Cardiovascular Disease
DX: R00.1 Bradycardia, unspecified (principal)
CPT/HCPCS: 93017; 93306

== ENCOUNTER → 2021-09-21 13:33 | Outpatient (CLI) | payer OTHER, SELFPAY ==
[2021-09-21 14:39] LABS: Cholesterol 257 mg/dL (140-199); HDL Cholesterol 81 mg/dL (40-60); LDL Cholesterol Calculated 156 mg/dL (<100); Triglycerides 100 mg/dL (35-150)
[2021-09-21 15:10] LABS: Cancer Antigen 125 < 5.5 U/mL (0-35)
== END ==
PROVIDERS: PCP Family Medicine; Referring Provider Nurse Practitioner; Visit Provider Nurse Practitioner
DX: C56.9 Malignant neoplasm of unspecified ovary (principal); E03.9 Hypothyroidism, unspecified; E78.5 Hyperlipidemia, unspecified
CPT/HCPCS: 36415; 80061; 84443; 86304

== ENCOUNTER → 2021-12-12 13:58 | Outpatient (CLI) | payer OTHER, SELFPAY ==
--- NOTE | 2021-12-12 14:00 | DI.MG.S_ITS ---
BILATERAL DIGITAL SCREENING MAMMOGRAM 3D/2D WITH CAD WITH AUGMENTATION: 12/12/2021 CLINICAL: Routine screening. Family history of breast cancer. Comparison is made to exams dated: 11/09/2020 mammogram, 10/22/2019 mammogram, and 07/22/2018 mammogram - [facility]. There are scattered areas of fibroglandular density in both breasts (category b / 25%-50% glandular tissue). Current study was also evaluated with a Computer Aided Detection (CAD) system. Bilateral breast implants are stable. No significant masses, calcifications, or other findings are seen in either breast. There has been no significant interval change. IMPRESSION: NEGATIVE There is no mammographic evidence of malignancy. A 1 year screening mammogram is recommended. Based on the Tyrer Cuzick model (a risk assessment model) the patient's lifetime risk is 6.2% and her 10 year risk is 2.5%. According to the ACR, ACS, and NCCN guidelines, an annual breast MRI exam along with mammogram is recommended if the patient's lifetime risk is 20% or greater. This exam was interpreted at Station ID: [id number]. NOTE: For mammograms, a report in lay terms will be sent to the patient. Approximately 15% of breast malignancies will not be visualized mammographically. In the management of a palpable breast mass, a negative mammogram must not discourage biopsy of a clinically suspicious lesion. Electronically Signed By: Gary hermosillo/deana:12/12/2021 14:43:27 letter sent: Normal Exam ACR BI-RADS Category 1: Negative 3341F
== END ==
PROVIDERS: PCP Family Medicine; Referring Provider Family Medicine; Visit Provider Family Medicine
DX: Z12.31 Encounter for screening mammogram for malignant neoplasm of breast (principal); Z80.3 Family history of malignant neoplasm of breast
CPT/HCPCS: 77063; 77067

== ENCOUNTER → 2022-03-08 12:45 | Outpatient (CLI) | payer OTHER, SELFPAY ==
--- NOTE | 2022-03-08 | DI.CT.S_ITS ---
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 TECHNIQUE: Noncontrast 0.6 mm thick axial sections acquired through each temporal bone separately. Coronal images are reformatted. FINDINGS: Image quality: Excellent. RIGHT: External auditory canal: Canal has a normal appearance. Middle ear: The middle ear structures, including the ossicles and tympanic membrane, appear normal. No abnormal fluid or soft tissue density. Inner ear: Otic capsule is intact. There is significant thinning and rarefaction of the arcuate eminence covering the upper aspect of the superior semicircular canal, possibly reflecting an element of dehiscence. Remainder of the inner ear unremarkable. Vestibular aqua duct unremarkable Mastoids: Mastoid air cells are clear. LEFT: External auditory canal: Canal has a normal appearance. Middle ear: The middle ear structures, including the ossicles and tympanic membrane, appear normal. No abnormal fluid or soft tissue density. Inner ear: Arcuate eminence is unremarkable. Otic capsule normal. Inner ear is normally formed and appears unremarkable. Facial nerve appears normal throughout its course. Mastoids: Mastoid air cells are clear. MISCELLANEOUS: Visualized surrounding bones appear unremarkable. Visualized intracranial structures, including the cerebellopontine angle cisterns, appear normal. IMPRESSION: Asymmetric thinning and rarefaction of the arcuate eminence over the right superior semicircular canal may reflect an element of dehiscence. Otherwise unremarkable CT of the temporal bones Approved by: Truong Millan M.D. on 03/08/2022 at 13:08
== END ==
PROVIDERS: PCP Family Medicine; Referring Provider Otolaryngology; Visit Provider Otolaryngology
DX: H90.72 Mixed conductive and sensorineural hearing loss, unilateral, left ear, with unrestricted hearing on the contralateral side (principal)
CPT/HCPCS: 70480

== ENCOUNTER → 2023-02-03 09:58 | Outpatient (CLI) | payer OTHER, SELFPAY ==
[2023-02-03 11:02] LABS: Add Manual Diff / Slide Review NO; Basophils Absolute Auto 0 /uL (0-100); Basophils Percent Auto 0.6 % (0-2); Eosinophils Absolute Auto 200 /uL (0-450); Eosinophils Percent Auto 2.9 % (2-4); Hematocrit 37.4 % (36-46); Hemoglobin 12.6 g/dL (12.0-16.0); Lymphocytes Absolute Auto 1500 /uL (1100-4500); Lymphocytes Percent Auto 23.3 % (25-40); Mean Corpuscular HGB Conc 33.7 % (30-36); Mean Corpuscular Hemoglobin 30.2 PG (26-34); Mean Corpuscular Volume 89.5 fL (80-100); Monocytes Absolute Auto 600 /uL (0-900); Monocytes Percent Auto 9.2 % (3-14); Neutrophils Absolute Auto 4200 /uL (1500-7000); Platelet Count 211 X10^3/uL (150-400); Red Blood Cell Count 4.18 X10^6/uL (4.0-5.2); Red Cell Distribution Width 13.5 % (11.6-14.8); White Blood Cell Count 6.5 X10^3/uL (4.5-11.0)
[2023-02-03 12:28] LABS: Alanine Aminotransferase 24 IU/L (<35); Albumin 4.4 g/dL (3.5-5.0); Albumin Globulin Ratio 1.5 (1.0-2.8); Alkaline Phosphatase 45 U/L (38-126); Aspartate Aminotransferase 27 IU/L (14-36); BUN Creatinine Ratio 19.2 (6-22); Bilirubin Total 0.7 mg/dL (0.2-1.3); Blood Urea Nitrogen 15 mg/dL (7-17); Calcium 9.8 mg/dL (8.4-10.2); Carbon Dioxide 30 mmol/L (22-32); Chloride 102 mmol/L (98-107); Cholesterol 269 mg/dL (140-199); Estimated Glomerular Filt Rate > 60 mL/min (>60); Globulin 2.9 g/dL (1.7-4.1); Glucose 92 mg/dL (80-110); HDL Cholesterol 78 mg/dL (40-60); HEMOLYSIS < 15 (0-50); LDL Cholesterol Calculated 170 mg/dL (<100); Potassium 4.1 mmol/L (3.4-5.1); Sodium 138 mmol/L (137-145); Total Protein 7.3 g/dL (6.3-8.2); Triglycerides 106 mg/dL (35-150)
[2023-02-03 12:58] LABS: Cancer Antigen 125 6.5 U/mL (0-35)
[2023-02-03 12:59] LABS: TSH w/ Reflex to FT4 4.15 uIU/mL (0.47-4.68)
[2023-02-08 05:59] LABS: Apolipoprotein B 133 mg/dL (<90)
== END ==
PROVIDERS: PCP Family Medicine; Referring Provider Nurse Practitioner Obstetrics & Gynecology; Visit Provider Nurse Practitioner Obstetrics & Gynecology
DX: C56.9 Malignant neoplasm of unspecified ovary (principal); E03.9 Hypothyroidism, unspecified; E78.5 Hyperlipidemia, unspecified
CPT/HCPCS: 36415; 80053; 80061; 82172; 84443; 85025; 86304

== ENCOUNTER → 2023-02-28 12:41 | Outpatient (CLI) | payer OTHER, SELFPAY ==
--- NOTE | 2023-02-28 12:43 | DI.MG.S_ITS ---
BILATERAL DIGITAL SCREENING MAMMOGRAM 3D/2D WITH CAD WITH AUGMENTATION: 02/28/2023 CLINICAL: Routine screening. Family history of breast cancer. Comparison is made to exams dated: 12/12/2021 mammogram - [facility], 11/09/2020 mammogram, and 10/22/2019 mammogram - [facility]. Both breasts are almost entirely fatty (category a/<25% glandular tissue). Current study was also evaluated with a Computer Aided Detection (CAD) system. Bilateral breast implants are stable. No significant masses, calcifications, or other findings are seen in either breast. There has been no significant interval change. IMPRESSION: NEGATIVE There is no mammographic evidence of malignancy. A 1 year screening mammogram is recommended. Based on the Tyrer Cuzick model (a risk assessment model) the patient's lifetime risk is 4.0% and her 10 year risk is 1.7%. According to the ACR, ACS, and NCCN guidelines, an annual breast MRI exam along with mammogram is recommended if the patient's lifetime risk is 20% or greater. This exam was interpreted at Station ID: [id number]. NOTE: For mammograms, a report in lay terms will be sent to the patient. Approximately 15% of breast malignancies will not be visualized mammographically. In the management of a palpable breast mass, a negative mammogram must not discourage biopsy of a clinically suspicious lesion. Electronically Signed By: Mile gao/deana:02/28/2023 16:08:14 letter sent: Normal Exam ACR BI-RADS Category 1: Negative [id number]
== END ==
PROVIDERS: PCP Family Medicine; Referring Provider Family Medicine; Visit Provider Family Medicine
DX: Z12.31 Encounter for screening mammogram for malignant neoplasm of breast (principal); Z80.3 Family history of malignant neoplasm of breast
CPT/HCPCS: 77063; 77067

== ENCOUNTER → 2023-07-23 16:02 | Outpatient (CLI) | payer OTHER, SELFPAY ==
[2023-07-23 16:51] LABS: Alanine Aminotransferase 27 IU/L (<35); Albumin 4.8 g/dL (3.5-5.0); Albumin Globulin Ratio 1.7 (1.0-2.8); Alkaline Phosphatase 48 U/L (38-126); Aspartate Aminotransferase 32 IU/L (14-36); BUN Creatinine Ratio 18.5 (6-22); Bilirubin Total 0.8 mg/dL (0.2-1.3); Blood Urea Nitrogen 12 mg/dL (7-17); Calcium 9.3 mg/dL (8.4-10.2); Carbon Dioxide 30 mmol/L (22-32); Chloride 104 mmol/L (98-107); Cholesterol 204 mg/dL (140-199); Estimated Glomerular Filt Rate > 60 mL/min (>60); Globulin 2.8 g/dL (1.7-4.1); Glucose 87 mg/dL (80-110); HDL Cholesterol 74 mg/dL (40-60); HEMOLYSIS < 15 (0-50); LDL Cholesterol Calculated 108 mg/dL (<100); Potassium 3.9 mmol/L (3.4-5.1); Sodium 138 mmol/L (137-145); Total Protein 7.6 g/dL (6.3-8.2); Triglycerides 110 mg/dL (35-150)
[2023-07-24 06:08] LABS: Apolipoprotein B 92 mg/dL (<90)
== END ==
PROVIDERS: PCP Family Medicine; Referring Provider Family Medicine; Visit Provider Family Medicine
DX: E78.5 Hyperlipidemia, unspecified (principal); E03.9 Hypothyroidism, unspecified
CPT/HCPCS: 36415; 80053; 80061; 82172

== ENCOUNTER → 2023-09-04 10:38 | Outpatient (CLI) | payer OTHER, SELFPAY ==
[2023-09-04 12:09] LABS: Estradiol, Total 15.5 pg/mL
[2023-09-04 12:29] LABS: Free T4, Direct Thyroxine 1.32 ng/dL (0.78-2.19)
[2023-09-04 12:43] LABS: Thyroid Stimulating Hormone 0.766 uIU/mL (0.47-4.68)
[2023-09-05 07:36] LABS: Thyroid Peroxidase Antibodies 26 IU/mL (0-34)
== END ==
LOC: LAB 10:39
PROVIDERS: PCP Family Medicine; Referring Provider Family Medicine; Visit Provider Family Medicine
DX: E78.5 Hyperlipidemia, unspecified (principal); C56.9 Malignant neoplasm of unspecified ovary; E03.9 Hypothyroidism, unspecified; F41.9 Anxiety disorder, unspecified; F90.9 Attention-deficit hyperactivity disorder, unspecified type
CPT/HCPCS: 36415; 82670; 84144; 84402; 84403; 84439; 84443; 84481; 84999; 86376

== ENCOUNTER → 2024-03-05 11:21 | Outpatient (CLI) | payer OTHER, SELFPAY ==
--- NOTE | 2024-03-05 11:22 | DI.MG.S_ITS ---
BILATERAL DIGITAL SCREENING MAMMOGRAM 3D/2D WITH CAD WITH AUGMENTATION: 03/05/2024 CLINICAL: Routine screening. Family history of breast cancer. Comparison is made to exams dated: 02/28/2023 mammogram, 12/12/2021 mammogram - [facility], 11/09/2020 mammogram, 10/22/2019 mammogram, and 07/22/2018 mammogram - [facility]. There are scattered areas of fibroglandular density (category b / 25%-50% glandular tissue). Current study was also evaluated with a Computer Aided Detection (CAD) system. Bilateral breast implants are stable. No significant masses, calcifications, or other findings are seen in either breast. There has been no significant interval change. IMPRESSION: BENIGN There is no mammographic evidence of malignancy. A 1 year screening mammogram is recommended. Based on the Tyrer Cuzick model (a risk assessment model) the patient's lifetime risk is 5.8% and her 10 year risk is 2.6%. According to the ACR, ACS, and NCCN guidelines, an annual breast MRI exam along with mammogram is recommended if the patient's lifetime risk is 20% or greater. This exam was interpreted at Station ID: [id number]. NOTE: For mammograms, a report in lay terms will be sent to the patient. Approximately 15% of breast malignancies will not be visualized mammographically. In the management of a palpable breast mass, a negative mammogram must not discourage biopsy of a clinically suspicious lesion. Electronically Signed By: Mary Dave M.D., Ph.D. rekha/pencrista:03/06/2024 02:52:34 letter sent: Normal Exam ACR BI-RADS Category 2: Benign
== END ==
LOC: MAMMO 11:21
PROVIDERS: PCP Family Medicine; Referring Provider Family Medicine; Visit Provider Family Medicine
DX: Z12.31 Encounter for screening mammogram for malignant neoplasm of breast (principal); Z80.3 Family history of malignant neoplasm of breast
CPT/HCPCS: 77063; 77067

== ENCOUNTER → 2024-04-22 15:14 | Outpatient (CLI) | payer OTHER, SELFPAY ==
[2024-04-22 17:19] LABS: Cholesterol 238 mg/dL (140-199); HDL Cholesterol 70 mg/dL (40-60); LDL Cholesterol Calculated 139 mg/dL (<100); Triglycerides 143 mg/dL (35-150)
[2024-04-22 17:54] LABS: Cancer Antigen 125 < 5.5 U/mL (0-35)
[2024-04-23 03:40] LABS: Apolipoprotein B 108 mg/dL (<90)
== END ==
PROVIDERS: PCP Family Medicine; Referring Provider Family Medicine; Visit Provider Family Medicine
DX: E78.5 Hyperlipidemia, unspecified (principal); C56.9 Malignant neoplasm of unspecified ovary; E03.9 Hypothyroidism, unspecified; F41.9 Anxiety disorder, unspecified; F90.9 Attention-deficit hyperactivity disorder, unspecified type; K58.9 Irritable bowel syndrome, unspecified
CPT/HCPCS: 36415; 80061; 82172; 86304

== ENCOUNTER → 2024-05-13 13:02 | Outpatient (CLI) | payer OTHER, SELFPAY ==
[2024-05-13 14:12] LABS: Influenza A - CEPHEID Flu A POSITIVE (NEGATIVE); Influenza B - CEPHEID Flu B NEGATIVE (NEGATIVE); Respiratory Syncytial Virus Negative (Negative)
[2024-05-13 14:13] LABS: COVID-19 CEPHEID 4-PLEX PCR Negative (Negative)
== END ==
PROVIDERS: PCP Family Medicine; Visit Provider Physician Assistant Surgical
DX: R05.9 Cough, unspecified (principal)
CPT/HCPCS: 0241U

== ENCOUNTER → 2024-09-04 15:19 | Outpatient (CLI) | payer OTHER, SELFPAY ==
[2024-09-04 15:36] LABS: Add Manual Diff / Slide Review NO; Basophils Absolute Auto 0 /uL (0-100); Basophils Percent Auto 0.5 % (0-2); Eosinophils Absolute Auto 100 /uL (0-450); Eosinophils Percent Auto 1.5 % (2-4); Hemoglobin 13.1 g/dL (12.0-16.0); Lymphocytes Absolute Auto 1700 /uL (1100-4500); Lymphocytes Percent Auto 21.2 % (25-40); Mean Corpuscular HGB Conc 33.6 % (30-36); Mean Corpuscular Hemoglobin 31.1 PG (26-34); Mean Corpuscular Volume 92.4 fL (80-100); Monocytes Absolute Auto 800 /uL (0-900); Monocytes Percent Auto 9.3 % (3-14); Neutrophils Absolute Auto 5500 /uL (1500-7000); Neutrophils Percent Auto 67.5 % (50-75); Platelet Count 239 X10^3/uL (150-400); Red Blood Cell Count 4.22 X10^6/uL (4.0-5.2); Red Cell Distribution Width 13.6 % (11.6-14.8); White Blood Cell Count 8.1 X10^3/uL (4.5-11.0)
[2024-09-04 15:58] LABS: Cholesterol 213 mg/dL (140-199); HDL Cholesterol 69 mg/dL (40-60); LDL Cholesterol Calculated 119 mg/dL (<100); Triglycerides 124 mg/dL (35-150)
[2024-09-04 16:11] LABS: Free T3, Triiodothyronine Free 3.07 pg/mL (2.77-5.27); Free T4, Direct Thyroxine 1.36 ng/dL (0.78-2.19)
[2024-09-04 16:25] LABS: Thyroid Stimulating Hormone 3.64 uIU/mL (0.47-4.68)
== END ==
PROVIDERS: PCP Family Medicine; Referring Provider Family Medicine; Visit Provider Family Medicine
DX: E03.9 Hypothyroidism, unspecified (principal); C56.9 Malignant neoplasm of unspecified ovary; E78.5 Hyperlipidemia, unspecified; F90.9 Attention-deficit hyperactivity disorder, unspecified type; F41.9 Anxiety disorder, unspecified
CPT/HCPCS: 36415; 80061; 82172; 84439; 84443; 84481; 85025

== ENCOUNTER → 2025-01-30 17:23 | Outpatient (CLI) | payer OTHER, SELFPAY ==
[2025-01-30 17:55] LABS: Add Manual Diff / Slide Review NO; Hematocrit 35.9 % (36-46); Hemoglobin 12.2 g/dL (12.0-16.0); Lymphocytes Absolute Auto 1800 /uL (1100-4500); Mean Corpuscular HGB Conc 33.9 % (30-36); Mean Corpuscular Hemoglobin 30.7 PG (26-34); Mean Corpuscular Volume 90.7 fL (80-100); Platelet Count 226 X10^3/uL (150-400)
[2025-01-30 18:27] LABS: Alanine Aminotransferase 16 IU/L (<35); Albumin 4.6 g/dL (3.5-5.0); Albumin Globulin Ratio 1.7 (1.0-2.8); Alkaline Phosphatase 49 U/L (38-126); Blood Urea Nitrogen 16 mg/dL (7-17); Calcium 9.3 mg/dL (8.4-10.2); Carbon Dioxide 27 mmol/L (22-32); Chloride 102 mmol/L (98-107); Estimated Glomerular Filt Rate > 60 mL/min (>60); Globulin 2.7 g/dL (1.7-4.1); Glucose 107 mg/dL (70-99); HEMOLYSIS < 15 (0-50); Potassium 4.0 mmol/L (3.4-5.1); Sodium 138 mmol/L (137-145); Total Protein 7.3 g/dL (6.3-8.2)
[2025-01-30 18:41] LABS: Progesterone, Total 32.90 ng/mL
[2025-01-30 18:57] LABS: Estradiol, Total 30.2 pg/mL
== END ==
PROVIDERS: PCP Family Medicine; Referring Provider Specialist; Visit Provider Specialist
DX: Z51.81 Encounter for therapeutic drug level monitoring (principal); E06.3 Autoimmune thyroiditis; N95.9 Unspecified menopausal and perimenopausal disorder; R53.83 Other fatigue; R73.09 Other abnormal glucose
CPT/HCPCS: 36415; 80053; 82670; 84144; 84403; 84480; 85025